=== PATIENT | male | born 2000 | race Caucasian/White ===

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

== ENCOUNTER → 2021-03-19 15:12 | Outpatient (BNVA) | payer MEDICAID, SELFPAY | PROVIDERS: Family Provider Nurse Practitioner; PCP Nurse Practitioner; Visit Provider Emergency Medicine | DX: Z20.822 Contact with and (suspected) exposure to COVID-19 (principal) | CPT/HCPCS: 87635 ==

== ENCOUNTER → 2021-08-19 11:56 | Outpatient (BNVA) | payer MEDICAID, SELFPAY | PROVIDERS: Family Provider Nurse Practitioner; PCP Nurse Practitioner; Visit Provider Family Medicine | DX: S69.91XA Unspecified injury of right wrist, hand and finger(s), initial encounter; W22.09XA Striking against other stationary object, initial encounter | CPT/HCPCS: 73130 ==

== ENCOUNTER → 2021-11-18 13:39 | Outpatient (BNVA) | payer MEDICAID, SELFPAY | PROVIDERS: Family Provider Nurse Practitioner; PCP Nurse Practitioner; Visit Provider Nurse Practitioner Family | DX: R05.9 Cough, unspecified (principal); J45.20 Mild intermittent asthma, uncomplicated; Z20.822 Contact with and (suspected) exposure to COVID-19 | CPT/HCPCS: 87635 ==

== ENCOUNTER → 2021-11-19 20:52 | Outpatient (BNVA) | payer MEDICAID, SELFPAY | PROVIDERS: Family Provider Nurse Practitioner; PCP Nurse Practitioner; Visit Provider Nurse Practitioner Family | DX: R05.9 Cough, unspecified (principal); J45.20 Mild intermittent asthma, uncomplicated | CPT/HCPCS: 87801 ==

== ENCOUNTER 2022-06-06 12:46 | Emergency (ER) | payer MEDICAID, SELFPAY ==
[2022-06-06] VITALS (16 sets, daily range): BP systolic 127–154; BP diastolic 76–85; PULSE 70–90; RESP 10–22; TEMP 36.7; O2SAT 94–100; BMI 23.0
--- NOTE | 2022-06-06 13:06 | ECG_ITS ---
[facility] Test Date: 2022-06-06 Pat Name: Pernell Garrett Department: Room: Gender: Male Note Keeper: : 2000 Requested By: Cesilia Gould Order Number: [id number] Juliocesar MD: Laney Ulloa M.D. Measurements Intervals Scott Rate: 72 P: 66 FL: 113 QRS: 100 QRSD: 106 T: 5 QT: 362 QTc: 396 Interpretive Statements SINUS RHYTHM WITH SHORT FL INTERVAL BORDERLINE RIGHT AXIS DEVIATION [QRS AXIS > 90] INCOMPLETE RIGHT BUNDLE BRANCH BLOCK [90+ ms QRS DURATION, TERMINAL R IN V1/V2, 40+ ms S IN I/aVL/V4/V5/V6] MODERATE ST DEPRESSION [0.05+ mV ST DEPRESSION] Compared to ECG 06/06/2022 13:06:55 ST (T wave) deviation now present Sinus arrhythmia no longer present Electronically Signed On 06-06-2022 18:23:51 CDT by Laney Ulloa M.D. [id number]
--- NOTE | 2022-06-06 13:10 | XRR_ITS ---
PROCEDURE INFORMATION: Exam: XR Chest Exam date and time: 06/06/2022 1:35 PM Age: 22 years old Clinical indication: Shortness of breath; Additional info: SOB TECHNIQUE: Imaging protocol: Radiologic exam of the chest. Views: 1 view. COMPARISON: CR XR chest 2V* [id number] 01/29/2019 8:40 PM FINDINGS: Lungs: Unremarkable. No consolidation. Pleural spaces: Unremarkable. No pleural effusion. No pneumothorax. Heart/Mediastinum: Unremarkable. No cardiomegaly. Bones/joints: Unremarkable. XR/XR chest 1V portable [id number] IMPRESSION: No acute findings.
[2022-06-06] MEDS: dexamethasone 4 mg Tablet 10 MG PO (14:04)
--- NOTE | 2022-06-06 14:28 | ED_ITS ---
HPI - SOB/Dyspnea General: Chief Complaint: Shortness of Breath/Dyspnea Stated Complaint: SOB Time Seen by Provider: 06/06/22 13:29 History of Present Illness: HPI Narrative: 22-year-old male presenting today with shortness of breath. Patient notes onset of symptoms over the last 24 hours. Worse with exertion. Patient has a baseline history of asthma. For which she takes multiple medications. No recent antibiotics. No fevers or chills. Notes he has been coughing. Due to epigastric abdominal pain which is worse with coughing. He denies pain or swelling in his lower extremities. He denies history of blood clots. He denies recent travel or recent surgeries. No changes to his medications Review of Systems General: Reports: 10 or more systems reviewed and unremarkable except in HPI and below PFSH ED PFSH: Medical History (Updated 06/06/22 @ 14:30 by Kedar Delgado DO) Acne Anxiety and depression Atypical migraine Environmental and seasonal allergies GERD (gastroesophageal reflux disease) Mild intermittent asthma Social History Smoking and tobacco status: never smoked Second hand smoke exposure: Yes Smoking risk assessment/counseling performed?: No Alcohol intake: never Marital status: Single History of recent travel: No Physical Exam Const: COMMON NORMALS: no acute distress, patient oriented x3 and alert GENERAL APPEARANCE: cooperative ORIENTATION/CONSCIOUSNESS: Yes awake, Yes oriented to person, Yes oriented to place and Yes oriented to time HENMT: COMMON NORMALS: normocephalic, atraumatic, external ears normal, Normal external nose present and moist oral mucous membranes HEAD & SCALP: normal to inspection, normocephalic and atraumatic NOSE: Normal external nose present GENERAL EAR: hearing grossly impaired EXTERNAL EAR: Yes external ears normal Eye: COMMON NORMALS: Equal, round and reactive pupils present, EOMs intact bilaterally, conjunctivae normal and no scleral icterus GENERAL EYE: appearance normal, both eyes and all related structures EYELID: eyelids normal CONJUNCTIVA: Yes conjunctivae normal SCLERA: sclerae normal P UPIL: Yes Equal, round and reactive pupils present Neck/C-Spine: COMMON NORMALS: full ROM, supple and no JVD GENERAL: Yes normal visual inspection Lymph: LYMPHATIC: no lymphadenopathy noted and no lymphedema noted Chest: COMMONS NORMALS: normal inspection of the chest Resp: COMMON NORMALS: normal respiratory effort, No retractions and No use of accessory muscles Cardio: COMMON NORMALS: no JVD, regular rate and regular rhythm RATE: regular rate RHYTHM: regular rhythm GI: COMMON NORMALS: Normal to inspection, nondistended, normoactive bowel sounds present : COMMON NORMALS: Yes no CVA tenderness BLADDER/KIDNEY EXAM: Yes no CVA tenderness Back/Pelvis: COMMON NORMALS: no CVA tenderness and thoracic and lumbar spine normal to inspection Extremity: COMMON NORMALS: normal to inspection, full ROM and capillary refill normal GENERAL: Yes normal exam except as noted Neuro: COMMON NORMALS: patient oriented x3, CN's II-XII intact bilaterally, moves all extremities, no focal motor deficits, no sensory deficits noted and gait normal SENSORIUM/ORIENTATION: Yes alert, Yes oriented to person, Yes oriented to place and Yes oriented to time Psych: COMMON NORMALS: mental status grossly normal, Normal thought process present, cooperative and normal affect THOUGHT PROCESS: Normal thought process present Skin: COMMON NORMALS: no rashes or lesions noted and no wounds GENERAL SKIN EXAM: no rashes or lesions noted Course Vital Signs: Vital signs: Vital Signs Temperature 98.0 F 06/06/22 12:50 Pulse Rate 90 06/06/22 12:50 Respiratory Rate 18 06/06/22 12:50 Blood Pressure 154/84 06/06/22 12:50 Pulse Oximetry 100 06/06/22 12:50 Oxygen Delivery Me thod 06/06/22 12:50 MDM - SOB/Dyspnea Medical Decision Making 22-year-old male presenting today with shortness of breath. EKG is unremarkable. Chest x-ray without focal consolidation. We will treat his to have asthma exacerbation with Decadron. Patient was given strict return precautions and recommended routine outpatient follow-up. Discharge Plan Discharge Patient Disposition: Home Clinical Impression: Asthma exacerbation Condition: Stable Prescriptions: No Action lidocaine-epinephrine 1 %-1:100,000 solution 1 ml SUBCUT ONCE Qty: 20 0RF sertraline 50 mg tablet 50 mg PO .hs 30 Days Qty: 30 5RF loratadine 10 mg capsule 10 mg PO DAILY 30 Days Qty: 30 5RF fluticasone propionate [Flonase Allergy Relief] 50 mcg/actuation spray,suspension 2 spray INTRANASAL BID 30 Days Qty: 1 5RF famotidine 20 mg tablet 20 mg PO BID 30 Days Qty: 60 5RF albuterol sulfate [ProAir HFA] 90 mcg/actuation HFA aerosol inhaler 2 puff inhalation Q6H PRN (Reason: shortness of breath or wheezing) 30 Days Qty: 6.7 5RF albuterol sulfate 2.5 mg /3 mL (0.083 %) solution for nebulization 2.5 mg INHALATION Q4H PRN (Reason: shortness of breath or wheezing) 30 Days Qty: 75 5RF (DME) compressor, for nebulizer Device See Rx Instructions .Route Qty: 1 0RF Rx Instructions: As directed (DME) nebulizer accessories Kit See Rx Instructions .Route Qty: 1 0RF Rx Instructions: As directed Discharge Orders: Discharge ED (Routine); Ordered 06/06/22 Ordered By: Kedar Delgado Referrals: Nyla Salazar FNP-C [Primary Care Provider] - Patient Instructions: Asthma (ED) Coding Level of Care Code ED Radio Control Crane Operator for Susana Deleon
[2022-06-06 15:45] LABS: Adenovirus Not Detected (NOT DETECT); Chlamydia Pneumoniae Not Detected (NOT DETECT); Coronavirus 229E,HKU1,NL63,OC4 Not Detected (NOT DETECT); Human Metapneumovirus Not Detected (NOT DETECT); Human Rhinovirus/Enterovirus Not Detected (NOT DETECT); Influenza A Not Detected (NOT DETECT); Influenza A H1 Not Detected (NOT DETECT); Influenza A H1-2009 Not Detected (NOT DETECT); Influenza A H3 Not Detected (NOT DETECT); Influenza B Not Detected (NOT DETECT); Mycoplasma Pneumoniae Not Detected (NOT DETECT); Parainfluenza Virus Type 1 Not Detected (NOT DETECT); Parainfluenza Virus Type 2 Not Detected (NOT DETECT); Parainfluenza Virus Type 3 Not Detected (NOT DETECT); Parainfluenza Virus Type 4 Not Detected (NOT DETECT); Respiratory Syncytial Virus A Not Detected (NOT DETECT); Respiratory Syncytial Virus B Not Detected (NOT DETECT); SARS-COV-2 Not Detected (NOT DETECT)
== END 2022-06-06 15:15 | disposition home or self-care (01) ==
PROVIDERS: Emergency Provider Emergency Medicine; PCP Nurse Practitioner
DX: J45.901 Unspecified asthma with (acute) exacerbation (principal)
CPT/HCPCS: 71045; 87635; 93005; 99284; J8540

== ENCOUNTER → 2022-12-08 14:29 | Outpatient (BNVA) | payer MEDICAID, SELFPAY | PROVIDERS: PCP Nurse Practitioner; Visit Provider Nurse Practitioner Family | DX: R10.9 Unspecified abdominal pain (principal); R11.10 Vomiting, unspecified | CPT/HCPCS: 80053; 81000; 85025 ==

== ENCOUNTER 2023-02-01 19:56 | Emergency (ER) | payer MEDICAID, SELFPAY ==
[2023-02-01 20:08] VITALS: BP 138/72; PULSE 80; RESP 20; TEMP 36.6; O2SAT 99; BMI 24.4
[2023-02-01 20:25] VITALS: O2SAT 99
--- NOTE | 2023-02-01 20:27 | ED_ITS ---
HPI - Skin/Abscess/Foreign Bdy General: Chief complaint: Skin/Abscess/Foreign Body Stated complaint: abscess on groin area Time Seen by Provider: 02/01/23 20:18 History of Present Illness: 22-year-old male patient comes in today for concerns of a tender nodule to the right groin. Patient reports noticing it 2 days ago. Patient is concerned that it may be a cyst or pimple. Patient appears nontoxic. Associated symptoms: Deny fever(s) Review of Systems General: Reports: 10 or more systems reviewed and unremarkable except in HPI and below Const: Denies: fever(s) Skin/Breast: Reports: new lesions PFSH ED PFSH: Medical History Acne Anxiety and depression Atypical migraine Environmental and seasonal allergies GERD (gastroesophageal reflux disease) Mild intermittent asthma Surgical History History of placement of ear tubes History of tonsillectomy and adenoidectomy Hx of appendectomy Social History Smoking and tobacco status: never smoked Second hand smoke exposure: Yes Smoking risk assessment/counseling performed?: No Alcohol intake: never Substance/Drug Use: never Marital status: Single Physical Exam Const: COMMON NORMALS: alert HENMT: COMMON NORMALS: normocephalic HEAD & SCALP: normocephalic Neck/C-Spine: COMMON NORMALS: full ROM Cardio: COMMON NORMALS: regular rate RATE: regular rate Extremity: COMMON NORMALS: full ROM Neuro: SENSORIUM/ORIENTATION: Yes alert Skin: LESIONS: other (Small nodule right inguinal area) Course Vital Signs: Vital signs: Vital Signs Temperature 98 F 02/01/23 20:08 Pulse Rate 68 02/01/23 20:34 Respiratory Rate 18 02/01/23 20:34 Blood Pressure 138/72 02/01/23 20:08 Pulse Oximetry 98 02/01/23 20:34 Oxygen Delivery Me thod Room Air 02/01/23 20:25 MDM - Skin/Abscess/Foreign Bdy Medicial Decision Making 22-year-old male patient comes in today for a lump to the right inguinal area. On exam patient has a small pimple-like structure to the right inguinal area. No significant fluctuance or redness or induration. Differential diagnosis includes but not limited to folliculitis, abscess, furuncle, inclusion of cyst. We will cover patient with doxycycline for infection along with mupirocin ointment. Patient was recommended not to poke or prod the structure and use the ointment twice a day to the lesion until clear. Patient reported understanding agreed to plan with need for follow-up or return. Discharge Plan Discharge Patient Disposition: Home Clinical Impression: Folliculitis Condition: Stable Prescriptions: New doxycycline monohydrate 100 mg capsule 100 mg PO BID 7 Days Qty: 14 0RF mupirocin 2 % ointment 1 applic topical BID Qty: 22 0RF No Action lidocaine-epinephrine 1 %-1:100,000 solution 1 ml SUBCUT ONCE Qty: 20 0RF sertraline 50 mg tablet 50 mg PO .hs 30 Days Qty: 30 5RF loratadine 10 mg capsule 10 mg PO DAILY 30 Days Qty: 30 5RF fluticasone propionate [Flonase Allergy Relief] 50 mcg/actuation spray,suspension 2 spray INTRANASAL BID 30 Days Qty: 1 5RF famotidine 20 mg tablet 20 mg PO BID 30 Days Qty: 60 5RF albuterol sulfate [ProAir HFA] 90 mcg/actuation HFA aerosol inhaler 2 puff inhalation Q6H PRN (Reason: shortness of breath or wheezing) 30 Days Qty: 6.7 5RF albuterol sulfate 2.5 mg /3 mL (0.083 %) solution for nebulization 2.5 mg INHALATION Q4H PRN (Reason: shortness of breath or wheezing) 30 Days Qty: 75 5RF (DME) compressor, for nebulizer Device See Rx Instructions .Route Qty: 1 0RF Rx Instructions: As directed (DME) nebulizer accessories Kit See Rx Instructions .Route Qty: 1 0RF Rx Instructions: As directed azithromycin 250 mg tablet See Rx Instructions PO .COMPLEX Qty: 6 0RF Rx Instructions: For 250 mg dose pack: take 500 mg today (day 1), then 250 mg for 4 days (days 2-5) PO ondansetron 8 mg tablet,disintegrating 8 mg PO Q8H PRN (Reason: nausea and vomiting) Qty: 21 0RF Discharge Orders: Discharge ED (Routine); Ordered 02/01/23 Ordered By: Timi Henriquez Referrals: Nyla Salazar, RESIDENTIAL SALES CONSULTANT-C [Primary Care Provider] - Discharge Diet: Usual diet Discharge Activity: Increase activity as tolerated Patient Instructions: Folliculitis (ED) Activity Restrictions/Additional Instructions: You have an infected hair follicle. Take doxycycline 100 mg 2 times a day for the next 7 days. Use mupirocin ointment twice a day to the area. Drink plenty of water with medications. Follow-up with primary care for further instruction. Return to ED for new concerns. Coding Level of Care Code ED Sizing End Bander for Susana Deleon
[2023-02-01 20:34] VITALS: PULSE 68; RESP 18; O2SAT 98
== END 2023-02-01 20:35 | disposition home or self-care (01) ==
PROVIDERS: Emergency Provider Nurse Practitioner Family; PCP Nurse Practitioner
DX: L73.9 Follicular disorder, unspecified (principal)
CPT/HCPCS: 99283

== ENCOUNTER 2023-12-13 17:40 | Emergency (ER) | payer MEDICAID, SELFPAY ==
[2023-12-13 17:49] VITALS: BP 131/81; PULSE 76; RESP 16; TEMP 36.6; O2SAT 97
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
== END 2023-12-13 19:08 | disposition home or self-care (01) ==
PROVIDERS: Emergency Provider Emergency Medicine; PCP Nurse Practitioner
DX: S13.4XXA Sprain of ligaments of cervical spine, initial encounter (principal); Z77.22 Contact with and (suspected) exposure to environmental tobacco smoke (acute) (chronic); V89.2XXA Person injured in unspecified motor-vehicle accident, traffic, initial encounter
CPT/HCPCS: 70450; 72100; 72125; 99284

== ENCOUNTER 2024-05-26 10:59 | Emergency (ER) | payer MEDICAID, SELFPAY ==
[2024-05-26 11:13] VITALS: BP 149/108; PULSE 84; RESP 18; TEMP 36.9; O2SAT 99; BMI 27.7
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
[2024-05-26] MEDS: ketorolac 30 mg/mL INJ IVP (11:59)
[2024-05-26 12:05] LABS: Basophils % 0.2 %; Eosinophils # 0.1 10^3/uL (0.0-0.8); Eosinophils % 0.7 %; Hematocrit 46.2 % (37-53); Lymphocytes % 16.4 %; Mean Corpuscular Hemoglobin 29.3 pg (27-33); Mean Corpuscular Volume 86.4 fl (82-101); Mean Platelet Volume 11.4 fL (7.4-10.4); Monocytes # 0.5 10^3/uL (0.2-0.9); Monocytes % 3.8 %; Neutrophils # 9.46 10^3/uL (1.8-7.7); Neutrophils % 78.7 %; Nucleated Red Blood Cells % 0 %; Platelet Count 193 10^3/cmm (157-399); Red Blood Count 5.35 10^6/uL (3.85-5.65); Red Cell Distribution Width 13.2 % (12.1-15.1); White Blood Count 12.02 10^3/uL (3.29-11.43)
[2024-05-26 12:19] LABS: Alanine Aminotransferase 48 U/L (0-41); Alkaline Phosphatase 94 U/L (40-130); Aspartate Amino Transferase 37 U/L (0-40); Blood Urea Nitrogen 10 mg/dL (6-20); Calcium 9.3 mg/dL (8.5-10.5); Carbon Dioxide 26 mmol/L (22-29); Chloride 101 mmol/L (98-107); Globulin 3.1 g/dL (1.3-4.6); Glomerular Filtration Rate 119.8 mL/min (90-130); Glucose 100 mg/dL (65-115); Osmolality Calculated 285 mOsm/kg (285-295); Sodium 138 mmol/L (136-145); Total Bilirubin 0.8 mg/dL (0.15-1.2); Total Protein 8.1 g/dL (6.6-8.7)
[2024-05-26] MEDS: iohexol 350 mg/mL 500 mL Btl (per mL) IV (12:47)
[2024-05-26 13:54] VITALS: BP 145/90; PULSE 76; O2SAT 98
== END 2024-05-26 14:22 | disposition home or self-care (01) ==
PROVIDERS: Emergency Provider Family Medicine; PCP Nurse Practitioner
DX: S06.0X0A Concussion without loss of consciousness, initial encounter (principal); S13.4XXA Sprain of ligaments of cervical spine, initial encounter; S39.012A Strain of muscle, fascia and tendon of lower back, initial encounter; V89.2XXA Person injured in unspecified motor-vehicle accident, traffic, initial encounter
CPT/HCPCS: 70450; 70486; 71260; 72125; 73080; 74177; 80053; 85025; 96374; 99285; J1885